=== PATIENT | female | born 1970 | race Caucasian/White ===

== ENCOUNTER 2021-12-14 10:35 | Inpatient (IN) ==
[2021-12-14 11:36] LABS: Hematocrit 41.9 % (35.3-44.9); Mean Corpuscular HGB Conc 35.8 g/dL (31.6-35.5); Mean Corpuscular Volume 89.3 fL (83.0-100.0); Mean Platelet Volume 9.7 fL (9.4-12.4); Monocytes # 0.3 K/mcL (0.0-1.3); Platelet Count 207 K/mcL (140-400); Red Blood Count 4.69 M/mcL (3.82-4.97); Red Cell Distribution Width 13.5 % (11.5-14.5); White Blood Count 11.3 K/mcL (4.3-11.1)
[2021-12-14 11:55] LABS: Lymphocytes # 0.2 K/mcL (0.6-4.6); Neutrophils # 10.7 K/mcL (1.6-8.9); Platelet Estimate Normal (Normal)
[2021-12-14 11:57] LABS: Calcium 9.7 mg/dL (8.6-10.3); Potassium 2.9 mEq/L (3.5-5.1)
[2021-12-14 12:03] LABS: Troponin I 0.04 ng/mL (< 0.04)
[2021-12-14] MEDS ORDERED: cefTRIAXone 1,000 MG in 0.9 % Sodium Chloride 10 ML IVP ONE (12:11)
[2021-12-14] MEDS ORDERED: 0.9 % Sodium Chloride 1,000 ML IVC SCH ×2 (12:15→14:45)
[2021-12-14] MEDS ORDERED: Iopamidol - 370 500 ML MLS IVP ONE (12:19)
[2021-12-14] MEDS: 0.9 % Sodium Chloride 1,000 ML IVC SCH ×4 (12:32→23:57)
[2021-12-14 12:43] LABS: Albumin 4.4 g/dL (3.5-5.7); Albumin/Globulin Ratio 1.6 (1.1-2.2); Bilirubin,Direct 0.3 mg/dL (0.0-0.2); Bilirubin,Indirect 0.8 mg/dL (0.0-1.0); Bilirubin,Total 1.1 mg/dL (0.3-1.0); Globulin 2.8 g/dL (2.4-3.5); Magnesium 1.6 mg/dL (1.6-2.6); Phosphorous 1.4 mg/dL (2.7-4.5); Total Protein 7.2 g/dL (6.4-8.9)
[2021-12-14 12:44] LABS: Bilirubin,Urine Negative (Negative); Blood,Urine Trace (Negative); Clarity,Urine Clear (Clear); Color,Urine Yellow (Yellow); Glucose,Urine (UA) Normal (Normal); Ketones,Urine Negative (Negative); Leukocyte Esterase,Urine Negative (Negative); Mucus,Urine Few per lpf (None-Few); Nitrite,Urine Negative (Negative); PH,Urine 6.5 pH Units (5.0-8.0); Protein,Urine 70 mg/dL (Neg-Trace); Specific Gravity,Urine 1.026 (1.010-1.025); Squamous Epithelial Cell,Urine Few per hpf (None-Few); Urobilinogen,Urine Normal (Normal)
[2021-12-14 12:47] LABS: INR 1.3; Prothrombin Time 14.1 Seconds (9.4-12.1)
[2021-12-14 12:49] LABS: Activated Partial Thrombo Time 33.5 Seconds (26.0-36.0)
[2021-12-14 13:10] LABS: Influenza A PCR Negative (Negative); Influenza B PCR Negative (Negative); Resp. Syncytial Virus PCR Negative (Negative)
[2021-12-14 13:21] LABS: SARS-CoV-2 by PCR (In House) Negative (Negative)
[2021-12-14] MEDS ORDERED: Ondansetron 4 MG/2 ML VIAL IVP ONE (13:25)
[2021-12-14] MEDS ORDERED: Potassium Chloride Elixir 20 MEQ/15 ML UDC PO ONE (13:27)
[2021-12-14] MEDS ORDERED: Vancomycin 2,000 MG/520 ML IV.SOLN IVPB ONE (14:00)
[2021-12-14] MEDS ORDERED: Acetaminophen 325 MG TABLET PO PRN (14:35)
[2021-12-14] MEDS ORDERED: Naloxone 0.4 MG/ML INJ IVP PRN (14:35)
[2021-12-14] MEDS ORDERED: Potassium Phosphate 44 MEQ in 0.9 % Sodium Chloride 250 ML IVPB ONE (14:42)
[2021-12-14] MEDS ORDERED: D5% in Water 1,000 ML IVC PRN (15:35)
[2021-12-14] MEDS ORDERED: *HR* Dextrose 50 % in Water (Syg) 50 ML SYRINGE IVP PRN (15:35)
[2021-12-14] MEDS ORDERED: Dextrose Gel 15 GM/37.5 ML TUBE PO PRN ×2 (15:35)
[2021-12-14] MEDS: Aspirin 81 MG TAB.CHEW PO SCH (15:39)
[2021-12-14] MEDS: Insulin LISPRO 300 UNITS/3 ML VIAL SUBQ SCH ×2 (16:08→21:55)
[2021-12-14] MEDS: Ondansetron 4 MG/2 ML VIAL IVP PRN (17:14)
[2021-12-14] MEDS ORDERED: 0.9 % Sodium Chloride 500 ML IV ONE (18:56)
[2021-12-14] MEDS: *HR* Heparin 5,000 UNIT/ML VIAL SQ SCH (21:54)
[2021-12-14] MEDS ORDERED: *HR* Promethazine 25 MG/ML VIAL IM ONE (23:28)
[2021-12-14 23:30] LABS: Estimated Average Glucose 91 mg/dl; Hemoglobin A1C 4.8 %
[2021-12-15 03:10] LABS: Hematocrit 36.8 % (35.3-44.9); Mean Corpuscular HGB Conc 34.8 g/dL (31.6-35.5); Mean Corpuscular Hemoglobin 31.7 pg (28.0-33.3); Mean Corpuscular Volume 91.1 fL (83.0-100.0); Mean Platelet Volume 10.2 fL (9.4-12.4); Platelet Count 163 K/mcL (140-400); Red Blood Count 4.04 M/mcL (3.82-4.97); Red Cell Distribution Width 13.7 % (11.5-14.5); White Blood Count 10.9 K/mcL (4.3-11.1)
[2021-12-15 03:46] LABS: Hemoglobin 12.8 g/dL (11.5-15.4)
[2021-12-15 03:50] LABS: Albumin 3.4 g/dL (3.5-5.7); Albumin/Globulin Ratio 1.5 (1.1-2.2); Bilirubin,Total 3.6 mg/dL (0.3-1.0); Calcium 7.7 mg/dL (8.6-10.3); Chol/HDL Ratio 3.9 (0-4.9); Globulin 2.2 g/dL (2.4-3.5); Phosphorous 2.8 mg/dL (2.7-4.5); Potassium 2.5 mEq/L (3.5-5.1); Total Protein 5.6 g/dL (6.4-8.9)
[2021-12-15] MEDS ORDERED: Potassium Chloride Elixir 20 MEQ/15 ML UDC PO ONE (04:03)
[2021-12-15 04:13] LABS: Platelet Estimate Normal (Normal)
[2021-12-15 04:14] LABS: Eosinophils # 0.2 K/mcL (0.0-0.6); Neutrophils # 10.7 K/mcL (1.6-8.9)
[2021-12-15] MEDS ORDERED: Acetaminophen IV 1,000 MG/100 ML BAG IVPB ONE (04:43)
[2021-12-15] MEDS ORDERED: 0.9 % Sodium Chloride 1,000 ML IVC ONE (04:44)
[2021-12-15] MEDS: *HR* Heparin 5,000 UNIT/ML VIAL SQ SCH ×3 (06:41→20:38)
[2021-12-15] MEDS: Vancomycin 1,500 MG/265 ML IV.SOLN IVPB SCH ×2 (08:17→17:57)
[2021-12-15] MEDS: Magnesium Oxide 400 MG TABLET PO SCH (08:17)
[2021-12-15] MEDS: Piperacillin/Tazobactam 3.375 GM in 0.9 % Sodium Chloride Mini Bag 100 ML IVPB SCH ×3 (08:17→23:25)
[2021-12-15] MEDS: Aspirin 81 MG TAB.CHEW PO SCH (08:17)
[2021-12-15 08:44] LABS: VBG Ionized Calcium 0.99 mmol/L (1.15-1.35)
[2021-12-15 08:53] LABS: Calcium 7.5 mg/dL (8.6-10.3); Magnesium 2.5 mg/dL (1.6-2.6); Potassium 2.8 mEq/L (3.5-5.1)
[2021-12-15] MEDS: Insulin LISPRO 300 UNITS/3 ML VIAL SUBQ SCH ×4 (08:58→20:38)
[2021-12-15] MEDS ORDERED: Calcium Gluconate 1gm/50mL 1 GM/50 ML BAG IVPB ONE (09:18)
[2021-12-15] MEDS ORDERED: 0.9 % Sodium Chloride 1,000 ML IVC SCH (10:15)
[2021-12-15] MEDS ORDERED: 0.9 % Sodium Chloride 500 ML IV ONE (11:26)
[2021-12-15] MEDS ORDERED: Ibuprofen 400 MG TABLET PO ONE (11:27)
[2021-12-15] MEDS: Ondansetron 4 MG/2 ML VIAL IVP PRN ×2 (11:56→22:41)
[2021-12-15] MEDS ORDERED: cefTRIAXone 1,000 MG in Water for inj. (sterile) 10 ML IVP SCH (12:00)
[2021-12-15] MEDS: 0.9 % Sodium Chloride 1,000 ML IVC SCH ×2 (14:59→22:34)
[2021-12-15 15:54] LABS: Calcium 7.4 mg/dL (8.6-10.3); Potassium 2.9 mEq/L (3.5-5.1); Troponin I 0.06 ng/mL (< 0.04)
[2021-12-15 15:56] LABS: Hepatitis B Surface Antigen Nonreactive (Nonreactive)
[2021-12-15 16:24] LABS: Hepatitis B Core IgM Nonreactive (Nonreactive)
[2021-12-15 16:25] LABS: Hepatitis A Antibody IgM Nonreactive (Nonreactive)
[2021-12-15 16:26] LABS: Hepatitis C Virus Antibody Nonreactive (Nonreactive)
[2021-12-16] MEDS ORDERED: Cholestyramine 4 GM POWD.PACK PO ONE (02:49)
[2021-12-16] MEDS ORDERED: Simethicone 80 MG TAB.CHEW PO PRN (02:49)
[2021-12-16] MEDS ORDERED: Ondansetron 4 MG/2 ML VIAL IVP ONE (03:01)
[2021-12-16 03:39] LABS: Basophils % 0.4 %; Eosinophils # 0.1 K/mcL (0.0-0.6); Eosinophils % 2.9 %; Hematocrit 33.7 % (35.3-44.9); Hemoglobin 11.7 g/dL (11.5-15.4); Immature Granulocytes % 0.8 % (0-4); Lymphocytes # 0.3 K/mcL (0.6-4.6); Lymphocytes % 7.1 %; Mean Corpuscular HGB Conc 34.7 g/dL (31.6-35.5); Mean Corpuscular Volume 89.4 fL (83.0-100.0); Mean Platelet Volume 10.8 fL (9.4-12.4); Monocytes # 0.1 K/mcL (0.0-1.3); Monocytes % 2.9 %; Neutrophils # 4.1 K/mcL (1.6-8.9); Platelet Count 137 K/mcL (140-400); Red Blood Count 3.77 M/mcL (3.82-4.97); Segmented Neutrophils % 85.9 %; White Blood Count 4.8 K/mcL (4.3-11.1)
[2021-12-16 04:01] LABS: Albumin/Globulin Ratio 1.3 (1.1-2.2); Bilirubin,Total 3.8 mg/dL (0.3-1.0); Calcium 7.6 mg/dL (8.6-10.3); Globulin 2.3 g/dL (2.4-3.5); Magnesium 2.2 mg/dL (1.6-2.6); Potassium 2.9 mEq/L (3.5-5.1); Total Protein 5.3 g/dL (6.4-8.9)
[2021-12-16] MEDS ORDERED: Potassium Chloride Elixir 20 MEQ/15 ML UDC PO ONE (05:37)
[2021-12-16] MEDS: Vancomycin 1,500 MG/265 ML IV.SOLN IVPB SCH (05:49)
[2021-12-16] MEDS: *HR* Heparin 5,000 UNIT/ML VIAL SQ SCH ×3 (05:49→21:00)
[2021-12-16] MEDS: Piperacillin/Tazobactam 3.375 GM in 0.9 % Sodium Chloride Mini Bag 100 ML IVPB SCH (08:44)
[2021-12-16] MEDS: Aspirin 81 MG TAB.CHEW PO SCH (08:45)
[2021-12-16] MEDS: Magnesium Oxide 400 MG TABLET PO SCH (08:45)
[2021-12-16] MEDS: Ondansetron 4 MG/2 ML VIAL IVP PRN ×2 (08:46→20:59)
[2021-12-16] MEDS: 0.9 % Sodium Chloride 1,000 ML IVC SCH ×2 (08:56→16:55)
[2021-12-16] MEDS: Insulin LISPRO 300 UNITS/3 ML VIAL SUBQ SCH ×4 (09:47→21:00)
[2021-12-16] MEDS ORDERED: Calcium Gluconate 1gm/50mL 1 GM/50 ML BAG IVPB ONE (16:37)
[2021-12-16] MEDS ORDERED: DilTIAZem CD (24hr) 180 MG CAP.ER.24H PO ONE (16:39)
[2021-12-16 17:41] LABS: Magnesium 1.5 mg/dL (1.6-2.6); Potassium 2.5 mEq/L (3.5-5.1)
[2021-12-16] MEDS ORDERED: cefTRIAXone 2,000 MG in 0.9 % Sodium Chloride 20 ML IVP SCH (18:00)
[2021-12-16] MEDS ORDERED: POTASSIUM CHLORIDE IN 0.9%NACL 40 MEQ/1,000 ML IV.SOLN IV ONE (19:00)
[2021-12-16] MEDS: 0.9 % Sodium Chloride w KCl 40 MEQ/1,000 ML MLS IVC SCH (20:59)
[2021-12-16 23:09] VITALS: O2SAT 97
[2021-12-17] MEDS ORDERED: Ondansetron 4 MG/2 ML VIAL IVP ONE (02:07)
[2021-12-17] MEDS ORDERED: 0.9 % Sodium Chloride 1,000 ML IVC SCH (02:15)
[2021-12-17 03:31] LABS: Hematocrit 31.6 % (35.3-44.9); Hemoglobin 11.2 g/dL (11.5-15.4); Mean Corpuscular HGB Conc 35.4 g/dL (31.6-35.5); Mean Corpuscular Hemoglobin 31.9 pg (28.0-33.3); Platelet Count 136 K/mcL (140-400); Red Blood Count 3.51 M/mcL (3.82-4.97); White Blood Count 4.6 K/mcL (4.3-11.1)
[2021-12-17 03:52] LABS: Alanine Aminotransferase 183 Units/L (7-52); Albumin 2.9 g/dL (3.5-5.7); Albumin/Globulin Ratio 1.3 (1.1-2.2); Alkaline Phosphatase 90 Units/L (34-104); Aspartate Amino Transferase 91 Units/L (13-39); BUN/Creatinine Ratio 10 (6-26); Bilirubin,Total 2.8 mg/dL (0.3-1.0); Blood Urea Nitrogen 7 mg/dL (6-20); Calcium 8.3 mg/dL (8.6-10.3); Carbon Dioxide 23 mEq/L (23-29); Chloride 111 mEq/L (98-107); Globulin 2.3 g/dL (2.4-3.5); Glucose 110 mg/dL (70-105); Magnesium 1.7 mg/dL (1.6-2.6); Osmolality,Calculated 293 (280-300); Potassium 3.6 mEq/L (3.5-5.1); Sodium 142 mEq/L (136-145); Total Protein 5.2 g/dL (6.4-8.9)
[2021-12-17] MEDS: 0.9 % Sodium Chloride w KCl 40 MEQ/1,000 ML MLS IVC SCH ×2 (03:59→08:45)
[2021-12-17 04:09] VITALS: BP 147/65; PULSE 58; TEMP 97.6
[2021-12-17] MEDS: Ondansetron 4 MG/2 ML VIAL IVP PRN (06:05)
[2021-12-17] MEDS: *HR* Heparin 5,000 UNIT/ML VIAL SQ SCH (06:06)
[2021-12-17] MEDS: Insulin LISPRO 300 UNITS/3 ML VIAL SUBQ SCH (08:40)
[2021-12-17] MEDS: Magnesium Oxide 400 MG TABLET PO SCH (08:44)
[2021-12-17] MEDS ORDERED: Aspirin Enteric Coated 81 MG Tablet PO SCH (09:00)
[2021-12-17] MEDS ORDERED: DilTIAZem CD (24hr) 180 MG CAP.ER.24H PO SCH ×2 (09:00→21:00)
== END 2021-12-17 10:05 | disposition home or self-care (01) | DRG 872 ==
LOC: EMEROOARM 10:35 → 3BNU 10:35 → 2NENU 12-15 15:19 → SUATTDRO 12-15 15:20
PROVIDERS: ADMIT Internal Medicine; ATTEND Internal Medicine